=== PATIENT | male | born 2000 | race Caucasian/White ===

== ENCOUNTER 2020-03-22 18:41 | Emergency (ER) | payer MEDICAID, OTHER ==
[~2020-03-22] VITALS: Ht 182.9 cm; Wt 74.8 kg
[2020-03-22 18:46] VITALS: BP 129/76
--- NOTE | 2020-03-22 18:50 | NUR ---
Nirmala todd in ED - 03/22/20 at 1851 by [email or web address] Patient ambulated to bed 1. RN evaluating patient at bedside.
--- NOTE | 2020-03-22 18:51 | NUR ---
BIB SELF C/O LOWER ABDOMINAL PAIN, LOWER BACK PAIN, LEFT TESTICULAR PAIN X LAST NIGHT.MED HX: DENIES. DENIES N/V/D; SKIN IS PINK/WARM/DRY; AAOX4 WITH EVEN AND STEADY GAIT; LUNGS CLEAR BL; HR EVEN AND REGULAR; PT DENIES ANY FEVER, CP, SOB, OR COUGH AT THIS TIME; PATIENT STATES PAIN OF 5/10 AT THIS TIME. PATIENT POSITIONED FOR COMFORT; HOB ELEVATED; BEDRAILS UP X1; BED DOWN. ER MD MADE AWARE OF PT STATUS.
--- NOTE | 2020-03-22 18:51 | NUR ---
Patient ambulated to bed 12 after providing a urine specimen.
--- NOTE | 2020-03-22 19:08 | NUR ---
US AT BEDSIDE.
--- NOTE | 2020-03-22 19:13 | NUR ---
ERMD AT BEDSIDE.
--- NOTE | 2020-03-22 19:14 | NUR ---
REPORT GIVEN TO EVI GUTHRIE. TX OF CARE AT THIS TIME.
--- NOTE | 2020-03-22 19:15 | NUR ---
RECEIVED REPORT FROM EVI CHACON FOR CONTINUITY OF CARE.
--- NOTE | 2020-03-22 19:16 | NUR ---
US BEING DONE AT BEDSIDE.
[2020-03-22 19:56] LABS: APPEARANCE,URINE CLEAR (CLEAR); BILIRUBIN,URINE NEGATIVE (NEGATIVE); BLOOD, URINE NEGATIVE (NEGATIVE); COLOR,URINE YELLOW (YELLOW); LEUKOCYTE ESTERASE ,URINE NEGATIVE (NEGATIVE); NITRITE, URINE NEGATIVE (NEGATIVE); PH,URINE 7.5 (5.0-9.0); UGLUCOSE NEGATIVE (NEGATIVE)
[2020-03-22 20:36] VITALS: BP 124/82
--- NOTE | 2020-03-22 20:36 | NUR ---
Patient discharged with v/s stable. Written and verbal after care instructions given and explained. Patient verbalized understanding. Ambulatory with steady gait. All questions addressed prior to discharge. Advised to follow up with PMD.
== END 2020-03-22 20:36 | disposition home or self-care (01) ==
LOC: MED 18:41
DX: N50.819 Testicular pain, unspecified (principal)
CPT/HCPCS: 76870; 81003; 99284; Q0092